=== PATIENT | male | born 1960 | race Caucasian/White ===

== ENCOUNTER 2018-12-27 07:16 | Emergency (ER) | payer OTHER ==
[2018-12-27] MEDS ORDERED: ASPIRIN 81 MG CHEWABLE TABLET ONE (07:45)
[2018-12-27 07:51] LABS: Basophils % 1.1 % (0-1.3); Hematocrit 59.7 % (39.6-49.0); MPV 8.3 fL (7.6-11.3); RBC Red Blood Cell Count 5.88 M/uL (4.33-5.43)
[2018-12-27 08:08] LABS: Albumin 3.4 g/dL (3.4-5.0); Bilirubin Direct 0.2 mg/dL (0-0.2); Bilirubin Total 1.1 mg/dL (0.2-1.0); Magnesium 2.2 mg/dL (1.8-2.4); Protein, Total 7.3 g/dL (6.4-8.2); Troponin (Emerg Dept Use Only) 0.07 ng/mL (0.0-0.045)
--- NOTE | 2018-12-27 08:38 | EDPHYS ---
Physician Documentation [facility] Name: Luke Avalos Age: 58 yrs Sex: Male : 1960 Arrival Date: 12/27/2018 Time: 07:20 Bed 20 Private MD: None, None ED Physician Carlos Choudhury HPI: 12/27 07:46 This 58 yrs old Male presents to ER via Ambulatory with complaints of Chest pm1 Pain. 07:46 The patient or guardian reports chest pain that is located primarily in the mid-sternal pm1 area. 07:46 Onset: 1 week(s) ago. The pain radiates to both shoulders. Associated signs and pm1 symptoms: Pertinent negatives: abdominal pain, cough, dizziness, headache, nausea, shortness of breath, vomiting. The chest pain is described as a pressure. Duration: The patient or guardian reports multiple episodes, the episodes last approximately 15 minute(s). Modifying factors: The symptoms are alleviated by ASA. Severity of pain: in the emergency department the pain has improved is a 2 / 10. The patient has experienced similar episodes in the past, several times. The patient has not recently seen a physician, and does not have an established primary care provider. Patient with history of AL. 3 stents placed 3 years ago and 3 stents placed in July 2018. Patient does not currently take any medications. He took 90 days worth of medications after his stent placement. Has not followed up with any doctors since hospitalization in July. Patient with one and off daily chest pain that last about 15 minutes each time for the past week. Reports improvement and resolution of chest pain with chewing aspirin. Worse today 8/10 prior to arrival and he took two 81 mg aspirin and his chest pain improved to 2/10. Historical: - Allergies: 07:31 No Known Allergies; bb - Home Meds: 07:31 None [Active]; bb - PMHx: 07:31 CAD; Myocardial infarction; chronic back pain; bb - PSHx: 07:31 Heart stents; bb - Immunization history:: Adult Immunizations up to date. - Social history:: Smoking status: Patient uses tobacco products, smokes one pack cigarettes per day. Patient uses alcohol, on a daily basis. Patient/guardian denies using street drugs. - Ebola Screening: : No symptoms or risks identified at this time. ROS: 07:51 Constitutional: Negative for fever, chills, and weight loss, Eyes: Negative for injury, pm1 pain, redness, and discharge, ENT: Negative for injury, pain, and discharge, Neck: Negative for injury, pain, and swelling. 07:51 Respiratory: Negative for shortness of breath, cough, wheezing, and pleuritic chest pain, Abdomen/GI: Negative for abdominal pain, nausea, vomiting, diarrhea, and constipation, Back: Negative for injury and pain, MS/Extremity: Negative for injury and deformity, Skin: Negative for injury, rash, and discoloration, Neuro: Negative for headache, weakness, numbness, tingling, and seizure. 07:51 Cardiovascular: Positive for chest pain, Negative for edema, palpitations. Exam: 07:51 Constitutional: This is a well developed, well nourished patient who is awake, alert, pm1 and in no acute distress. Head/Face: Normocephalic, atraumatic. Neck: Trachea midline, no thyromegaly or masses palpated, and no cervical lymphadenopathy. Supple, full range of motion without nuchal rigidity, or vertebral point tenderness. No Meningismus. Chest/axilla: Normal chest wall appearance and motion. Nontender with no deformity. No lesions are appreciated. Cardiovascular: Regular rate and rhythm with a normal S1 and S2. No gallops, murmurs, or rubs. Normal PMI, no JVD. No pulse deficits. Respiratory: Lungs have equal breath sounds bilaterally, clear to auscultation and percussion. No rales, rhonchi or wheezes noted. No increased work of breathing, no retractions or nasal flaring. Abdomen/GI: Soft, non-tender, with normal bowel sounds. No distension or tympany. No guarding or rebound. No evidence of tenderness throughout. Back: No spinal tenderness. No costovertebral tenderness. Full range of motion. Skin: Warm, dry with normal turgor. Normal color with no rashes, no lesions, and no evidence of cellulitis. MS/ Extremity: Pulses equal, no cyanosis. Neurovascular intact. Full, normal range of motion. 07:51 Neuro: Orientation: is normal, Mentation: is normal, Motor: is normal, moves all fours. Vital Signs: 07:31 BP 181 / 95; Pulse 82; Resp 16 S; Temp 98.1(O); Pulse Ox 98% on R/A; Weight 65.77 kg bb (R); Height 5 ft. 11 in. (180.34 cm) (R); Pain 2/10; 07:47 BP 156 / 89; Pulse 73; Resp 18; Pulse Ox 98% on R/A; ph 08:49 BP 144 / 78; Pulse 74; Resp 18; Temp 97.9; Pulse Ox 99% on R/A; ph 07:31 Body Mass Index 20.22 (65.77 kg, 180.34 cm) bb MDM: 07:21 Patient medically screened. pm1 08:00 Data reviewed: vital signs. Data interpreted: Pulse oximetry: on room air is 99 %. pm1 Interpretation: normal. 08:28 Refusal of service: The patient/guardian displays adequate decision making capability pm1 and despite a detailed discussion of alternatives, benefits, risks, and consequences refuses: Admission to the hospital for further work-up and treatment, Told the patient that he has elevated troponin which indicates a heart attack. My diagnosis is NSTEMI. Told him that if he refuses to stay in the hospital it can result in further damage to his heart and . Patient wants to leave the hospital to work because he will miss out on $1000 per day of work and his chest pain has not stopped him from working before. He wants to come back if it gets worse and said that there is an ambulance at his work site. 09:03 Refusal of service: The patient/guardian displays adequate decision making capability pm1 and despite a detailed discussion of alternatives, benefits, risks, and consequences refuses: Admission to the hospital for further work-up and treatment, Explained again to the patient that he has had a heart attack and that I want him admitted to the hospital. Explained again that his refusal to stay in the hospital can result in further damage to his heart and . He still wants to go to work because he does not want to miss out on the money. Told the patient that he can return to the hospital at anytime for admission. 12/27 07:25 Order name: Basic Metabolic Panel; Complete Time: 08:17 pm1 12/27 07:25 Order name: CBC with Diff; Complete Time: 08:02 pm1 12/27 07:25 Order name: LFT's; Complete Time: 08:17 pm1 12/27 07:25 Order name: Magnesium; Complete Time: 08:17 pm1 12/27 07:25 Order name: NT PRO-BNP; Complete Time: 08:17 pm1 12/27 07:25 Order name: Troponin (emerg Dept Use Only); Complete Time: 08:17 pm1 12/27 07:25 Order name: XRAY Chest (1 view) pm1 12/27 07:25 Order name: EKG; Complete Time: 07:26 pm1 12/27 07:25 Order name: Cardiac monitoring; Complete Time: 07:34 pm1 12/27 07:25 Order name: EKG - Nurse/Tech; Complete Time: 07:34 pm1 12/27 07:25 Order name: IV Saline Lock; Complete Time: 07:34 pm1 12/27 07:25 Order name: Labs collected and sent; Complete Time: 07:34 pm1 08 07:25 Order name: O2 Per Protocol; Complete Time: 07:34 pm1 12/27 07:25 Order name: O2 Sat Monitoring; Complete Time: 07:34 pm1 Administered Medications: 07:46 Drug: Aspirin Chewable Tablet 162 mg {Note: 162 taken [employer].} Route: PO; ph 09:19 Follow up: Response: No adverse reaction ph 08:45 Drug: Lovenox 1 mg/kg Route: Sub-Q; Site: right lower abdomen; ph 09:19 Follow up: Response: No adverse reaction ph 09:18 Not Given (Patient Refused; not needed): morphine 4 mg IVP once; RASS on ADMIN: ph Combtv4, Very Agttd3, Rstlss1, AlertClm0, Drwsy-1, Lt Sdtn-2, Mod Sdtn-3, Dp Sdtn-4, UnArsble-5 09:18 Not Given (Patient Refused; Not needed): Zofran 4 mg IVP once; over 2 minutes ph Disposition: 13:18 Co-signature as Attending Physician, Carlos Choudhury MD I agree with the assessment and kdr plan of care. Disposition: 12/27/18 08:37 Patient has left against medical advice. Impression: Non-ST elevation (NSTEMI) myocardial infarction. - Patients states they are going to Home. - Condition is Undetermined. - Discharge Instructions: Non-ST Segment Elevation Heart Attack. Follow up: Emergency Department; When: As needed; Reason: Worsening of condition. Follow up: Private Physician; When: Upon discharge from the Emergency Department; Reason: Recheck today's complaints, Continuance of care, Re-evaluation by your physician. - Problem is new. - Symptoms have improved. Signatures: Dispatcher [employer] EDMS Carlos Choudhury MD MD kdr Ballard, Brenda, RN RN bb Shirley Dennis RN RN Hilario Mcduffie NP EMS DIRECTOR pm1 Corrections: (The following items were deleted from the chart) 09:22 08:37 12/27/2018 08:37 Patients has left against medical advice. Impression: Non-ST ph elevation (NSTEMI) myocardial infarction. Patient states they are going to Home. Condition is Undetermined. Follow up: Emergency Department; When: As needed; Reason: Worsening of condition. Follow up: Private Physician; When: Upon discharge from the Emergency Department; Reason: Recheck today's complaints, Continuance of care, Re-evaluation by your physician. Problem is new. Symptoms have improved. pm1
--- NOTE | 2018-12-27 08:38 | ER ---
Nurse's Notes [facility] Name: Luke Avalos Age: 58 yrs Sex: Male : 1960 Arrival Date: 12/27/2018 Time: 07:20 Bed 20 Private MD: None, None Diagnosis: Non-ST elevation (NSTEMI) myocardial infarction Presentation: 12/27 07:27 Presenting complaint: Patient states: he has been having intermittent chest pain x 1 bb week the pain is worse now denies SOB, nausea, states pain is like a pressure radiating into bilateral arms and neck although it is only 2/10 right now he did take 2 baby aspirin this morning. Transition of care: patient was not received from another setting of care. Onset of symptoms was December 21, 2018. Risk Assessment: Do you want to hurt yourself or someone else? Patient reports no desire to harm self or others. Initial Sepsis Screen: Does the patient meet any 2 criteria? No. Patient's initial sepsis screen is negative. Does the patient have a suspected source of infection? No. Patient's initial sepsis screen is negative. Care prior to arrival: None. 07:27 Method Of Arrival: Ambulatory bb 07:27 Acuity: ADILIA 2 bb Historical: - Allergies: 07:31 No Known Allergies; bb - Home Meds: 07:31 None [Active]; bb - PMHx: 07:31 CAD; Myocardial infarction; chronic back pain; bb - PSHx: 07:31 Heart stents; bb - Immunization history:: Adult Immunizations up to date. - Social history:: Smoking status: Patient uses tobacco products, smokes one pack cigarettes per day. Patient uses alcohol, on a daily basis. Patient/guardian denies using street drugs. - Ebola Screening: : No symptoms or risks identified at this time. Screenin:35 Abuse screen: Denies threats or abuse. Denies injuries from another. Nutritional ph screening: No deficits noted. Tuberculosis screening: No symptoms or risk factors identified. Fall Risk None identified. Assessment: 07:31 General: Appears in no apparent distress. comfortable, slender, well groomed, Behavior ph is calm, cooperative, appropriate for age, Denies fever, feeling ill. Pain: Complains of pain in chest Pain radiates to right arm, left arm, neck, and jaw Pain currently is 2 out of 10 on a pain scale. Quality of pain is described as pressure, squeezing, Pain began 1 week. Neuro: Level of Consciousness is awake, alert, obeys commands, Oriented to person, place, time, situation. Cardiovascular: Reports chest pain, palpitations, shortness of breath, Denies nausea, Capillary refill < 3 seconds in bilateral fingers Patient's skin is warm and dry. Rhythm is sinus rhythm. Respiratory: Airway is patent Respiratory effort is even, unlabored, Respiratory pattern is regular, symmetrical. Derm: Skin is intact, is healthy with good turgor, Skin is pink, warm \\T\\ dry. Musculoskeletal: Circulation, motion, and sensation intact. Range of motion: intact in all extremities. 08:25 Reassessment: Patient appears in no apparent distress at this time. Patient and/or ph family updated on plan of care and expected duration. Pain level reassessed. Patient is alert, oriented x 3, equal unlabored respirations, skin warm/dry/pink. ERP at bedside to speak w/ pt about admission to hospital r/t elevated cardiac enzymes, pt states that he does to want to stay, " I have stuff that I need to take care. I have felt worse than this before and if it gets bad I'll come back.". 08:48 Reassessment: Patient appears in no apparent distress at this time. Patient is alert, ph oriented x 3, equal unlabored respirations, skin warm/dry/pink. Pt continues to states that he does not want to be admitted, states, " I have my dog at home I have to take care of. I'll just take it easy because I've been working a lot lately and I promise to come back if it gets worse.". 08:57 Reassessment: Hilario Holloway COVER MAKER at bedside to again speak w/ pt about the importance ph of being admitted for further testing and monitoring and the risks of leaving w/out proper tx, pt continues to state that he wishes to leave AMA. Vital Signs: 07:31 BP 181 / 95; Pulse 82; Resp 16 S; Temp 98.1(O); Pulse Ox 98% on R/A; Weight 65.77 kg bb (R); Height 5 ft. 11 in. (180.34 cm) (R); Pain 2/10; 07:47 BP 156 / 89; Pulse 73; Resp 18; Pulse Ox 98% on R/A; ph 08:49 BP 144 / 78; Pulse 74; Resp 18; Temp 97.9; Pulse Ox 99% on R/A; ph 07:31 Body Mass Index 20.22 (65.77 kg, 180.34 cm) bb ED Course: 07:20 Patient arrived in ED. mr 07:20 None, None is Private Physician. mr 07:20 Hilario Holloway, KARLOS is PHCP. pm1 07:21 Shirley Dennis, RN is Primary Nurse. ph 07:23 EKG completed in triage. Results shown to MD. bb 07:29 Triage completed. bb 07:31 Arm band placed on Patient placed in an exam room, on a stretcher, on senior mechanical engineer, bb on pulse oximetry. 07:35 Patient has correct armband on for positive identification. Placed in gown. Bed in low ph position. Call light in reach. Side rails up X 1. semiconductor wafers saw operator on. Pulse ox on. NIBP on. Door closed. Noise minimized. Warm blanket given. Head of bed elevated. 07:35 Patient maintains SpO2 saturation greater than 95% on room air. ph 07:39 Initial lab(s) drawn, by me, sent to lab. Inserted saline lock: 20 gauge in right em1 forearm, using aseptic technique. Blood collected. 07:50 Carlos Choudhury MD is Attending Physician. pm1 08:02 X-ray completed. Portable x-ray completed in exam room. Patient tolerated procedure sw well. 08:05 XRAY Chest (1 view) In Process Unspecified. EDMS 09:20 No provider procedures requiring assistance completed. IV discontinued, intact, ph bleeding controlled, No redness/swelling at site. Pressure dressing applied. Administered Medications: 07:46 Drug: Aspirin Chewable Tablet 162 mg {Note: 162 taken [employer].} Route: PO; ph 09:19 Follow up: Response: No adverse reaction ph 08:45 Drug: Lovenox 1 mg/kg Route: Sub-Q; Site: right lower abdomen; ph 09:19 Follow up: Response: No adverse reaction ph 09:18 Not Given (Patient Refused; not needed): morphine 4 mg IVP once; RASS on ADMIN: ph Combtv4, Very Agttd3, Rstlss1, AlertClm0, wsy-1, Lt Sdtn-2, Mod Sdtn-3, Dp Sdtn-4, UnArsble-5 09:18 Not Given (Patient Refused; Not needed): Zofran 4 mg IVP once; over 2 minutes ph Outcome: 09:21 AMA AMA form signed ph : Condition: stable :21 Instructed on follow up and referral plans. to take 324 ASA daily until able to follow up w/ insulation helper, also instructed to return to ED for worsening of symptoms 09:22 Patient left the ED. ph Signatures: Dispatcher [employer] EDLatoya Haynes Brenda, RN Kirill Alamo em1 Shirley Dennis RN RN ph Warren, Shannon sw Marinas, Patrick, KARLOS COVER MAKER pm1
[2018-12-27] MEDS ORDERED: ENOXAPARIN 80 MG/0.8 ML SQ ONE (08:43)
--- NOTE | 2018-12-27 09:23 | RAD REPORT ---
EXAM DESCRIPTION: Viktor Single View12/27/2018 8:03 am CLINICAL HISTORY: Chest pain COMPARISON: none FINDINGS: The lungs appear clear of acute infiltrate. The heart is normal size IMPRESSION: No acute abnormalities displayed
--- NOTE | 2018-12-27 12:26 | EKG ---
Test Date: 2018-12-27 Test Time: 07:23:23 Tray Service Worker: LUCY MEASUREMENT RESULTS: Intervals: Rate: 77 NV: 100 QRSD: 94 QT: 396 QTc: 448 [place]: P: 13 NV: 100 QRS: 21 T: -19 INTERPRETIVE STATEMENTS: Sinus rhythm with short NV T wave abnormality, consider inferior ischemia Abnormal ECG No previous ECG available for comparison Electronically Signed On 12-27-18 12:25:00 CDT by Jeff Vicente
== END 2018-12-27 09:22 | disposition left against medical advice (07) ==
LOC: ER 07:16
DX: I21.4 Non-ST elevation (NSTEMI) myocardial infarction (principal); I25.10 Atherosclerotic heart disease of native coronary artery without angina pectoris; I25.2 Old myocardial infarction; F17.210 Nicotine dependence, cigarettes, uncomplicated; Z53.29 Procedure and treatment not carried out because of patient's decision for other reasons
CPT/HCPCS: 93005; 85025; 80048; 83735; 80076; 84484; 83880; 71045; 96372; 99285; J1650

== ENCOUNTER 2019-01-04 06:54 | Day surgery (SDC) | payer OTHER ==
[2019-01-03 10:51] LABS: Protime INR 0.94
--- OUTSIDE RECORDS SUMMARY | 2019-01-04 06:56 | XMS REPORT | Continuity of Care Document ---
:1960 Author Organization [facility] Address [address] [place] [address] Phone Unavailable Care Team Providers Name Role Phone PHYSICIAN, NO Primary Care Physician Unavailable Insurance Providers Guarantor Luke Schulz Address [address] [place] [address] Email NONE Payer [facility] Policy Number [id number] Subscriber's Name Luke Schulz Relationship Self / Same As Patient Group Number [id number] Group Name NA Advance Directives Directive Response Recorded Date/Time Advance Directives No 10/13/15 9:26am Directive to Physicians/Living Will No 10/13/15 9:26am Health Care Proxy No 10/13/15 9:26am Name of Surrogate/Decision Maker N/A 07/21/18 8:21pm Organ Donor Yes 10/13/15 11:20am Medical Power of Rail Project Engineer No 10/13/15 9:26am Patient/Family Given Education Material Y - SIGNED 07/21/18..AG 07/21/18 8 :21pm R/T Directives? Problems Medical Problem Onset Date Status Chest pain Unknown Acute Foreign body (FB) in soft tissue Unknown Acute [id number] Unknown Acute Medications Current Home Medications Medication Dose Units Route Directions Days Qty Instructions Start Date No Known Meds (No Known Medication) Nkmeds Social History Social History Problem Response Recorded Date/Time Onset Date Status Hx Physical Abuse No 07/21/2018 7:22pm Not Applicable Not Applicable Smoking Status Start Date Stop Date Current every day smoker Hospital Discharge Instructions No hospital discharge instruction information available. Plan of Care Discharge Date 07/21/18 10:30pm Forms Provided Portal Welcome Letter Prescriptions See Medication Section Referrals NO PHYSICIAN Additional Instructions/Education transferred to [facility] Functional Status No functional status information available. Allergies, Adverse Reactions, Alerts Allergen Type Severity Reaction Status Last Updated Cheese Adverse Reaction Severe Severe Vomiting Active 06/18/13 Immunizations No immunization information available. Vital Signs Acute Vital Signs Vital Response Date/Time Blood Pressure 128/69 mm Hg 07/21/2018 11:04pm Pulse Pulse Rate (adult) 59 beats per minute (60 - 100) 07/21/2018 11:04pm Respiratory Rate 15 breaths per minute (10 - 24) 07/21/2018 11:04pm Temperature Source Oral 07/21/2018 11:04pm Height 5 ft 11 in 07/21/2018 7:22pm Weight 140 lb 07/21/2018 7:22pm Body Mass Index 19.5 kg/m^2 07/21/2018 7:22pm Results Laboratory Results Test Name Result Units Flags Reference Collection Result Comments Date/Time Date/Time White Blood Count 14.4 K/ul H 4.0-12.3 07/21/2018 07/21/2018 7:32pm 7:43pm Red Blood Count 6.34 M/ul H 3.80-5.80 07/21/2018 07/21/2018 7:32pm 7:43pm Hemoglobin 20.9 g/dl H* 11.67-17.2 07/21/2018 07/21/2018 Results have been broadcasted to patient's location and 2 7:32pm 7:43pm called to ([facility]). By CARYL YSABEL 07/21/18 @1937 Results read back for confirmation. Hematocrit 64.0 % H* 35.0-51.0 07/21/2018 07/21/2018 Results have been broadcasted to patient's location and 7:32pm 7:43pm called to ([facility]). By CARYL YSABEL 07/21/18 @1937 Results read back for confirmation. Mean Corpuscular 101.0 fl H 78-96 07/21/2018 07/21/2018 Volume 7:32pm 7:43pm Mean Corpuscular 32.9 pg 26.8-33.4 07/21/2018 07/21/2018 Hemoglobin 7:32pm 7:43pm Mean Corpuscular 32.6 g/dl 32.3-36.7 07/21/2018 07/21/2018 Hemoglobin Concent 7:32pm 7:43pm Red Cell 11.8 % 11.6-15.4 07/21/2018 07/21/2018 Distribution Width 7:32pm 7:43pm Platelet Count 231 K/ul 115-328 07/21/2018 07/21/2018 7:32pm 7:43pm Mean Platelet 7.7 fl L 8.4-11.8 07/21/2018 07/21/2018 Volume 7:32pm 7:43pm Neutrophils (%) 63.0 % 44.7-82.4 07/21/2018 07/21/2018 (Auto) 7:32pm 7:43pm Lymphocytes (%) 24.7 % 10.0-50.0 07/21/2018 07/21/2018 (Auto) 7:32pm 7:43pm Monocytes (%) 9.6 % 3.9-13.4 07/21/2018 07/21/2018 (Auto) 7:32pm 7:43pm Eosinophils (%) 0.9 % 0.0-6.43 07/21/2018 07/21/2018 (Auto) 7:32pm 7:43pm Basophils (%) 1.7 % H 0.0-0.72 07/21/2018 07/21/2018 (Auto) 7:32pm 7:43pm Prothrombin Time 10.1 SECONDS L 10.3-12.3 07/21/2018 07/21/2018 7:32pm 7:53pm THERAPEUTIC LEVEL: 1.5 to 1.9 times normal range of PT Prothromb Time 0.92 07/21/2018 07/21/2018 International 7:32pm 7:53pm Recommended therapeutic range for patients receiving Ratio warfarin (coumadin) therapy: INR is 2.0 to 3.0 Recommended range for patients with mechanical prosthetic heart valves: INR is 2.5 to 3.5 Activated Partial 33.9 SECONDS 22.5-37.0 07/21/2018 07/21/2018 Thromboplast Time 7:32pm 7:53pm Random Glucose 106 mg/dL 74-106 07/21/2018 07/21/2018 7:32pm 7:54pm Blood Urea 9 mg/dL 6-20 07/21/2018 07/21/2018 Nitrogen 7:32pm 7:54pm Serum Osmolality 269 L 280-300 07/21/2018 07/21/2018 7:32pm 7:54pm Creatinine 0.7 mg/dL 0.70-1.20 07/21/2018 07/21/2018 7:32pm 7:54pm Glomerular > 60.00 07/21/2018 07/21/2018 GFR RESULTS ARE REPORTED IN mL/min/1.73m2. Filtration Rate 7:32pm 7:54pm Calc Normal GFR: >60mL/min Moderately decreased GFR: 30-59 mL/min Severely decreased GFR: 15-29 mL/min Kidney Failure (or Dialysis): <15 mL/min The calculated eGFR is not valid for patients younger than 18 years or older than 75 years. BUN/Creatinine 12.9 12-07/21/2018 07/21/2018 Ratio 7:32pm 7:54pm Sodium Level 135 mmol/L 135-145 07/21/2018 07/21/2018 7:32pm 7:54pm Potassium Level 4.4 mmol/L 3.5-5.2 07/21/2018 07/21/2018 7:32pm 7:54pm Chloride Level 96 mmol/L L 98-108 07/21/2018 07/21/2018 7:32pm 7:54pm Carbon Dioxide 25 mmol/L 21-32 07/21/2018 07/21/2018 Level 7:32pm 7:54pm Anion Gap 18.4 mEq/L 12-07/21/2018 07/21/2018 7:32pm 7:54pm Calcium Level 9.5 mg/dL 8.6-10.0 07/21/2018 07/21/2018 7:32pm 7:54pm Total Protein 8.0 g/dL 6.6-8.7 07/21/2018 07/21/2018 7:32pm 7:54pm Albumin 4.1 g/dL 3.5-5.2 07/21/2018 07/21/2018 7:32pm 7:54pm Globulin 3.9 gm/dL 07/21/2018 07/21/2018 7:32pm 7:54pm Albumin/Globulin 1.1 >1.0 07/21/2018 07/21/2018 Ratio 7:32pm 7:54pm Total Bilirubin 0.9 mg/dL 0.0-1.2 07/21/2018 07/21/2018 7:32pm 7:54pm Aspartate Amino 96 U/L H 15-40 07/21/2018 07/21/2018 Transf (AST/SGOT) 7:32pm 7:54pm Alanine 20 U/L 0-41 07/21/2018 07/21/2018 Aminotransferase 7:32pm 7:54pm (ALT/SGPT) AN-Byt-L-Type 607 pg/mL H 0-125 07/21/2018 07/21/2018 Natriuretic 7:32pm 7:59pm Peptide Total Alkaline 100 U/L 40-130 07/21/2018 07/21/2018 Phosphatase 7:32pm 7:54pm Creatine Kinase 849 U/L H* 20-200 07/21/2018 07/21/2018 Results have been broadcasted to patient's location and 7:32pm 7:59pm called to (CAT RN). By SERAFIN MACK 07/21/18 @1957 Results read back for confirmation. Troponin I 4.20 ng/mL H* 0.0-0.5 07/21/2018 07/21/2018 Results have been broadcasted to patient's location and 7:32pm 7:59pm called to (CAT RN). By SERAFIN MACK 07/21/18 @1956 Results read back for confirmation. Published clinical studies have shown elevations of cTnI in patients with myocardial injury, as seen in unstable angina pectoris, cardiac contusions, and heart transplants. Elevations have also been seen in patients with rhabdomyolysis and polymyositis. Elevated troponin levels point to myocardial injury, but are not necessarily indicative of an ischemic mechanism. The term ID should be used when there is evidence of cardiac damage, as detected by marker proteins in a clinical setting consistent with myocardial ischemia. If the clinical circumstance suggests that an ischemic mechanism is unlikely, other causes of cardiac injury should be considered. For diagnostic purposes, the results should always be assessed in conjunction with the patient's medical history, clinical examination and other findings. Creatine Kinase MB 118.7 ng/ml H* 0.0-3.6 07/21/2018 07/21/2018 Results have been broadcasted to patient's location and 7:32pm 7:59pm called to (CAT RN). By SERAFIN MACK 07/21/18 @1957 Results read back for confirmation. DIAGNOSTIC CITERIA: CKMB CKMB RELATIVE INDEX SUGGESTIVE OF NON-AMI < or=5 N/A MOTA ZONE (INCONCLUSIVE) > 5 < or=4 SUGGESTIVE OF AMI >5 > 4 Procedures Procedure Status Date Provider(s) X-ray of chest, single view Completed 07/21/18 ESTEPHANIA BAZAN MD Encounters Encounter Location Arrival/Admit Date Discharge/Depart Date Attending Provider Departed [place] 07/21/18 7:17pm 07/21/18 10:30pm [facility]AN[facility]
[2019-01-04] MEDS ORDERED: HEPA 1000U/500MLS 2,000 UNIT/1,000 ML BAG IV ONE (07:08)
[2019-01-04] MEDS ORDERED: LIDOCAINE 1% MPF 30 ML VIAL ONE (07:09)
[2019-01-04] MEDS ORDERED: NA CHLORIDE 0.9% 500 ML ONE (07:09)
[2019-01-04] MEDS ORDERED: HEPARIN 5000 UNIT/ML 1 ML VIAL ONE (07:45)
[2019-01-04] MEDS ORDERED: MIDAZOLAM HCL 2 MG/2 ML INJ ONE ×2 (07:45→07:50)
[2019-01-04] MEDS ORDERED: FENTANYL CITR 100 MCG/2 ML ONE (07:45)
[2019-01-04] MEDS ORDERED: NITROGLYCERIN/D5W 25 MG/250 ML BTL IV ONE (07:46)
[2019-01-04] MEDS ORDERED: NITROGLYCERIN 100 MCG/ML SYR (for cath lab use only) IV ONE (07:46)
[2019-01-04] MEDS ORDERED: NA CHLORIDE 0.9% 50 ML ONE (07:46)
[2019-01-04] MEDS ORDERED: ATROPINE SULF 1 MG/10 ML SYR IV ONE (07:46)
[2019-01-04] MEDS ORDERED: NICARDIPINE HCL 25 MG/10 ML IV ONE (07:46)
[2019-01-04] MEDS ORDERED: PRASUGREL (EFFIENT) 10 MG TAB ONE (08:33)
[2019-01-04] MEDS ORDERED: ASPIRIN 325 MG TAB ONE (08:39)
[2019-01-04] MEDS ORDERED: ZOLPIDEM TARTRATE 5 MG TABLET PO PRN (09:07)
[2019-01-04] MEDS ORDERED: ACETAMINOPHEN 500 MG TAB PO PRN (09:08)
[2019-01-04] MEDS ORDERED: NITROGLYCERIN 0.4 MG/TAB SL PRN (09:09)
[2019-01-04] MEDS: METOPROLOL TAR 25 MG TAB PO SCH (18:11)
--- NOTE | 2019-01-04 20:29 | OP ---
Surgeon: Jorge Romero MD Worship Director: Kiera Meléndez. Identifying Data: A 58-year-old man. Procedures: Left heart catheterization with coronary and left ventricular angiography, percutaneous coronary intervention with a drug-eluting stents of the mid right coronary artery. Indication: Unstable angina. Procedure Findings: The patient had stents placed in posterolateral branch, obtuse marginal branches of the circumflex, not sure if there was one in the LAD and in the distal part of the right coronary artery. All of the stents were patent. No in-stent stenosis. There was diffuse CAD. The distal p art of the LAD after the second diagonal has a 50% to 60% stenosis that was not treated. The mid RCA is a very proximal part of it, but just after the feldman bryson had a 99% lesion with ANUJA grade 2 flow as the likely culprit vessels well proximal to the old stent in the distal part of the RCA. Aft er stenting, this 99% lesion had a 0% lesion, ANUJA flow was 3, and he was asymptomatic, and successfu l PCI of the mid RCA. The left ventricular ejection fraction was normal. There was inferior hypokin esis or inferobasal. The left ventricular end-diastolic pressure is 7. No aortic valve gradient on pullback. His systolic pressure slightly low at 95 mmHg measured shortly after giving nicardipine, h eparin, and nitroglycerin. Procedure In Detail: The patient was brought to the cardiac laboratory tester in a fasting state. He gave us informed consent. He was sedated with Versed and fentanyl, prepared and draped in usual sterile fas hion. Right radial artery was used. Tissues around the right radial artery were anesthetized with 1 % lidocaine. The artery was entered using a 21-gauge needle, cannulated with a 0.021 inch diameter g uidewire and then a 6-Maltese Terumo radial sheath was placed. The sheath was flushed, a radial cockt ail was given consisting of nicardipine, heparin, and nitroglycerin. We guided a TIG catheter into t he ascending aorta using a short radius J-tip Glidewire. We took pictures of the right and left rodríguez naries and left ventricle over the TIG catheter. After the decision was made to do a stent. The pat ient was given Angiomax and an activated clotting time over 400 seconds was demonstrated. The TIG ca theter was removed over an exchange length J-wire and a Ikari right with side holes was used, it was easily cannulated the right coronary ostium and gave excellent support. We crossed the lesion with a Cushing 0.014 inch diameter coronary guidewire. We primary stented with a Synergy 3.0 x 16 stent. I t was inflated to 11 atmospheres. The angiographic result was excellent. ANUJA-3 flow was demonstrat ed a normal flow. Orthogonal views were taken of the stented lesion with the wires and balloons bg jax and then the Ikari catheter was removed over a J-wire. The sheath was flushed, removed, and the arteriotomy closed with a TR band. Angiomax was turned off as soon as the final pictures were taken. Complications: From the procedure, none. Estimated Blood Loss: 10 mL. DEANDRA/MARV Voice ID: [id number] Report ID: [id number]
[2019-01-04] MEDS ORDERED: ATORVASTATIN 80 MG TAB PO SCH (21:00)
[2019-01-05 04:33] LABS: MPV 8.6 fL (7.6-11.3); RBC Red Blood Cell Count 5.66 M/uL (4.33-5.43)
[2019-01-05 04:41] LABS: Potassium 4.1 mmol/L (3.5-5.1)
[2019-01-05] MEDS: METOPROLOL TAR 25 MG TAB PO SCH (05:42)
[2019-01-05] MEDS ORDERED: CLOPIDOGREL 75 MG TABLET PO SCH (09:00)
[2019-01-05] MEDS ORDERED: ASPIRIN EC 81 MG TAB PO SCH (09:00)
--- NOTE | 2019-01-05 21:56 | PN ---
Mr. Avalos is a 58-year-old was admitted as an outpatient for a heart catheterization yesterday. Saskia brannon had a history of coronary artery disease status post stent in the past. Dr. Romero placed a RCA st ent in him yesterday. Today, patient has no complaint. Telemetry is normal. His right wrist entry site is normal with a good pulse. He will be discharged today on his medication including aspirin, m etoprolol, Plavix, and Lipitor. JAIMEE/MARV Voice ID: [id number] Report ID: [id number]
== END 2019-01-05 08:05 | disposition home or self-care (01) ==
LOC: CCL 06:54 → 2ND 09:02 → UNDOADMIN 09:02 → CCL 01-05 08:05
PROVIDERS: ATTEND Internal Medicine
DX: I25.110 Atherosclerotic heart disease of native coronary artery with unstable angina pectoris (principal); I10 Essential (primary) hypertension; E78.2 Mixed hyperlipidemia; Z95.5 Presence of coronary angioplasty implant and graft; F17.210 Nicotine dependence, cigarettes, uncomplicated; Z79.02 Long term (current) use of antithrombotics/antiplatelets; Z79.82 Long term (current) use of aspirin; Z91.018 Allergy to other foods
CPT/HCPCS: 80048; 36415 ×2; 85610; 85347; 85730; 85027; 92928; 93458; C1893; C1725; J1644; J2250 ×2; J3010; J0583

== ENCOUNTER → 2019-05-02 | Day surgery (SDC) | payer OTHER ==
--- NOTE | 2019-05-02 10:45 | RAD REPORT ---
EXAM DESCRIPTION: US - Follow Up Breast [facility] - 05/02/2019 9:49 am CLINICAL HISTORY: Retroareolar right breast mass -atypical gynecomastia versus malignancy COMPARISON: Mammogram and ultrasound imaging April 17 2019 FINDINGS: Patient presented for ultrasound-guided biopsy of retroareolar mass detailed on the mammog leslee and ultrasound studies of April 17. Consent was obtained. The patient was off Plavix for 7 days. Patient had no contraindicated allergy o r other medication history. After prepping and draping the right chest/ breast region, the procedure was initiated with the place ment of lidocaine. The initial skin wheel proved extremely painful for the patient in advancement of the lidocaine needl e through this subcutaneous fatty tissues equally proved very painful for the patient. He was clear that the patient would be unable to tolerate the biopsy procedure due to very substantia l pain and inability of local lidocaine to control pain. The procedure was terminated. The surgical excisional option was discussed with the patient at the ti me of the study. IMPRESSION: Retroareolar mass biopsy cannot be performed. The patient was in extreme pain and unable to tolerate the lidocaine numbing procedure. The biopsy was canceled. Patient was referred back to his consulting surgeon for possible surgical ex cisional biopsy.
== END ==
LOC: DS 04-26 10:27
PROVIDERS: ATTEND Surgery
DX: N63.41 Unspecified lump in right breast, subareolar (principal); Z53.8 Procedure and treatment not carried out for other reasons
CPT/HCPCS: 76642

== ENCOUNTER 2019-05-05 10:33 | Day surgery (SDC) | payer OTHER ==
[2019-05-05 10:52] LABS: Absolute Lymphocytes (CBC) 3.2 K/uL (0.7-4.9); Basophils % 1.2 % (0-1.3); Hematocrit 43.1 % (39.6-49.0); Lymphocytes % 31.6 % (15.3-44.8); MPV 8.8 fL (7.6-11.3); RBC Red Blood Cell Count 4.55 M/uL (4.33-5.43)
[2019-05-05] MEDS ORDERED: Ringers Lactate 1,000 ML IV ONE (11:01)
[2019-05-05] MEDS ORDERED: CEFAZOLIN/SWI 1gm 1 GM/10 ML SYR ONE (11:02)
[2019-05-05 11:07] LABS: Potassium 4.3 mmol/L (3.5-5.1)
--- NOTE | 2019-05-05 11:11 | RAD REPORT ---
EXAM DESCRIPTION: RAD - Chest Pa And Lat (2 Views) - 05/05/2019 10:34 am CLINICAL HISTORY: preop, pending retroareolar mass resection COMPARISON: December 27, 2018 TECHNIQUE: PA and lateral views of the chest were obtained. FINDINGS: The lungs are clear. Heart size is normal and central vasculature is within normal limit s. No pleural effusion or pneumothorax seen. No acute bony finding noted. No aortic abnormality. IMPRESSION: No acute cardiopulmonary process. No suspicious change from comparison.
[2019-05-05] MEDS ORDERED: FENTANYL CITR 100 MCG/2 ML ONE (11:33)
[2019-05-05] MEDS ORDERED: LIDOCAINE 1% MPF 5 ML VIAL ONE (11:33)
[2019-05-05] MEDS ORDERED: PROPOFOL 200 MG/20 ML VIAL IV ONE (11:33)
[2019-05-05] MEDS ORDERED: MIDAZOLAM HCL 2 MG/2 ML INJ ONE (11:33)
[2019-05-05] MEDS ORDERED: EPHEDRINE SULF 50 MG/ML VIAL ONE (11:55)
[2019-05-05] MEDS ORDERED: KETOROLAC 30 MG/ML INJ ONE (12:06)
--- NOTE | 2019-05-05 12:21 | P.BOP ---
Preoperative diagnosis: right breast retroareolar tender mass Postoperative diagnosis: same Primary procedure: Right subcutaneous mastectomy Estimated blood loss: <10cc Specimen: breast Findings: breast mass with yellow discharge over cavity Anesthesia: General Complications: None Transferred to: Recovery Room Condition: Good
[2019-05-05] MEDS ORDERED: ONDANSETRON 4 MG/2 ML VIAL ONE (12:41)
[2019-05-05 13:45] VITALS: BP 129/69; TEMP 97.6; O2SAT 99
--- NOTE | 2019-05-06 01:19 | OP ---
Date of Procedure: 05/05/2019 Surgeon: Leo Saldivar MD Preoperative Diagnosis: Right breast retroareolar tender mass. Postoperative Diagnosis: Right breast retroareolar tender mass. Procedure: Right subcutaneous mastectomy. Specimen: Breast. Findings: Patient has this breast tissue that the radiologist cannot say if this is cancer or gyneco mastia, but within the tissue itself and the mass patient has a cystic cavity that has some yellow vi scous almost looked like purulent discharge coming from the area. This was cultured. The fascia richard s not seem to be involved or muscle. Anesthesia: General plus local. Indications: This is the case of a 58-year-old patient with suspicious mass of the right breast area , retroareolar. The patient has multiple imaging, even tried core biopsy as per radiologist recently , but he could not tolerate that. He just does not want to do core biopsy or any other biopsy. He w ants the mass removed since this is retroareolar, we are going to have to do subcutaneous mastectomy since there is possible gynecomastia component to it. The benefits, alternatives, and risks of right subcutaneous mastectomy were fully explained to the patient, which include, but are not limited to i nfection, bleeding, damage to adjacent structures, anesthesia complications, nonhealing wound, [place], an d even . He also understands this may not relieve any symptoms, he might need more than one shyla gical intervention. He understood, signed the consent. He understands that based on the pathology i f final, he may need more surgery in that area and he may even need also lymph node, but that will be decided by the Pathology, he wants to wait until then. Description Of Procedure: Patient was brought to the operating room, placed in supine position. Ane sthesia was done without complication. The right breast area was prepped and draped in a sterile fas hion. A periareolar incision was made. Incision was carried down to the breast tissue and then we p roceeded to obtain a subcutaneous mastectomy. A doughnut like piece of tissue was removed leaving th e areolar complex intact. We proceeded to remove all the abnormal tissues in that breast area giving us a nice round doughnut-like breast tissue consistent with the mastectomy. The fascia was also rem candelario from the area that was very close, but does not seem to be involving the muscle. The area was i rrigated. The tissue was marked for orientation. Nipple looks intact with good color, so we proceed ed to close this area with 3-0 chromic and then with alcides. Sponge count, instrument counts were c orrect. Patient tolerated the procedure well. Patient was sent to the recovery room in stable condi tion. BRIANDA/MARV Voice ID: [id number] Report ID: [id number]
--- NOTE | 2019-05-06 01:22 | DS ---
Date of Discharge: 05/05/2019 Preoperative Diagnosis: Right breast retroareolar tender mass. Postoperative Diagnosis: Right breast retroareolar tender mass. Procedures: Right subcutaneous mastectomy. Disposition: Home. Activity: As tolerated. No heavy lifting. Followup: Follow up in my office in 1 week. Call for appointment [phone]. Keep dressings intact u ntil the next visit. Medications: Include Vicodin q.4 hours p.r.n. pain and we also gave him Bactrim DS p.o. b.i.d. We h ad sent cultures of the cavity that we mentioned before with this discharge. May be that this is an infection component that looked suspicious for malignancy with an associated gynecomastia. The patho logist will help us in that diagnosis. JENIFER Voice ID: [id number] Report ID: [id number]
== END 2019-05-05 13:40 | disposition home or self-care (01) ==
LOC: OR 10:33
PROVIDERS: ATTEND Surgery
PROC: 0HBT0ZZ Excision of Right Breast, Open Approach (ICD-10-PCS; principal; 2019-05-05 12:30)
DX: N63.10 Unspecified lump in the right breast, unspecified quadrant (principal); I10 Essential (primary) hypertension; I25.10 Atherosclerotic heart disease of native coronary artery without angina pectoris; I25.2 Old myocardial infarction; F17.210 Nicotine dependence, cigarettes, uncomplicated; Z79.82 Long term (current) use of aspirin; Z79.02 Long term (current) use of antithrombotics/antiplatelets; Z95.5 Presence of coronary angioplasty implant and graft
CPT/HCPCS: 87070; 85025; 80048; 36415; 87205; 88312; 88307; 87075; 71046; 19304; J2704; J2250; J3010; J0690; J7120; J2405; 88305